=== PATIENT | female | born 1995 | race Caucasian/White ===

== ENCOUNTER 2017-06-11 03:55 | Emergency (ER) | payer SELFPAY ==
[2017-06-11 04:07] VITALS: RESP 16; TEMP 97.5
--- NOTE | 2017-06-11 04:44 | EDPHY ---
H & P Stated Complaint: struck nose on knee while on trampoline, now swollen/bruised Time Seen by Provider: 06/11/17 04:36 HPI/ROS: CHIEF COMPLAINT: Nose injury HISTORY OF PRESENT ILLNESS: The patient is a 22-year-old female who comes to the emergency department an hour after injuring her nose on the trampoline. She states that she hit her nose on her knee. She has swelling but no deformity. She can breathe through her nose easily. She had minimal bleeding initially but it is now stopped. REVIEW OF SYSTEMS: Constitutional: denies: chills, fever, recent illness, recent injury EENTM: denies: blurred vision, double vision, Respiratory: denies: cough, shortness of breath Cardiac: denies: chest pain, irregular heart rate, lightheadedness, palpitations Gastrointestinal/Abdominal: denies: abdominal pain, diarrhea, nausea, vomiting, blood streaked stools Genitourinary: denies: dysuria, frequency, hematuria, pain Musculoskeletal: denies: joint pain, muscle pain Skin: denies: lesions, rash, jaundice, bruising Neurological: denies: headache, numbness, paresthesia, tingling, dizziness, weakness Hematologic/Lymphatic: denies: blood clots, easy bleeding, easy bruising Immunologic/allergic: denies: HIV/AIDS, transplant EXAM: GENERAL: Well-appearing, well-nourished and in no acute distress. HEAD: Atraumatic, normocephalic. EYES: Pupils equal round and reactive to light, extraocular movements intact, sclera anicteric, conjunctiva are normal. ENT: Mild swelling over the bridge of nose, no crepitus, no deformity. Patent airways and normal breathing. TMs normal, nares patent, oropharynx clear without exudates. Moist mucous membranes. NECK: Normal range of motion, supple without lymphadenopathy or JVD. LUNGS: Breath sounds clear to auscultation bilaterally and equal. No wheezes rales or rhonchi. HEART: Regular rate and rhythm without murmurs, rubs or gallops. ABDOMEN: Soft, nontender, normoactive bowel sounds. No guarding, no rebound. No masses appreciated. BACK: No CVA tenderness, no spinal tenderness, step-offs or deformities EXTREMITIES: Normal range of motion, no pitting or edema. No clubbing or cyanosis. NEUROLOGICAL: Cranial nerves II through XII grossly intact. Normal speech, normal gait. 5/5 strength, normal movement in all extremities, normal sensation PSYCH: Normal mood, normal affect. SKIN: Warm, dry, normal turgor, no visible rashes or lesions. Source: Patient Exam Limitations: No limitations - Personal History LMP (Females 10-55): 22-28 Days Ago Current Tetanus/Diphtheria Vaccine: No - Medical/Surgical History Hx Asthma: No Hx Chronic Respiratory Disease: No Hx Diabetes: No Hx Cardiac Disease: No Hx Renal Disease: No Hx Cirrhosis: No Hx Alcoholism: No Hx HIV/AIDS: No Hx Splenectomy or Spleen Trauma: No Other PMH: PMHx: denies. PSHx: tonsillectomy, wisdom tooth extraction - Family History Significant Family History: No pertinent family hx - Social History Smoking Status: Never smoked Alcohol Use: Sober Drug Use: None Constitutional: Initial Vital Signs Temperature (C) 36.4 C 06/11/17 04:03 Heart Rate 90 06/11/17 04:03 Respiratory Rate 16 06/11/17 04:03 Blood Pressure 110/70 06/11/17 04:03 O2 Sat (%) 95 06/11/17 04:03 O2 Delivery Mode Room Air Allergies/Adverse Reactions: Penicillins Allergy (Verified 06/11/17 04:02) Home Medications: Medication Instructions Recorded Daytrana 06/11/17 Loryna 3 mg-0.02 mg Tablet 06/11/17 Medical Decision Making ED Course/Re-evaluation: We discussed treatment for nasal bone fractures. I do not suspect that she has a fracture but will refer her to ENT in case she does. Her nose appears straight but slightly swollen. If there is a fracture does likely nondisplaced. We discussed imaging. Facial x-rays are not typically helpful and she required a CT scan. We agreed that it is not worth the radiation exposure at this time. I encouraged her to continue ice and elevation and anti- inflammatories and follow up with ENT. She understands and agrees with this plan. Differential Diagnosis: Partial list of the Differential diagnosis considered include but were not limited to; nasal bone fracture, epistaxis, contusion and although unlikely based on the history and physical exam, I also considered eye injury, head injury, neck injury. I discussed these differential diagnoses and the plan with the patient as well as the usual and expected course. The patient understands that the diagnosis is provisional and that in medicine we are not always correct and that further workup is often warranted. Usual and customary warnings were given. All of the patient's questions were answered. The patient was instructed to return to the emergency department should the symptoms at all worsen or return, otherwise to followup with the physician as we discussed. Departure - Departure Disposition: Home, Routine, Self-Care Clinical Impression: Nose injury Qualifiers: Encounter type: initial encounter Qualified Code(s): S09.92XA - Unspecified injury of nose, initial encounter Condition: Fair Instructions: Nosebleed (ED) Referrals: [facility] [Other] - As per Instructions Ursula Quintero MD [Medical Doctor] - As per Instructions
[2017-06-11 05:08] VITALS: BP 112/71; PULSE 76; O2SAT 97
== END 2017-06-11 05:08 | disposition home or self-care (01) ==
DX: S09.92XA Unspecified injury of nose, initial encounter (principal); X58.XXXA Exposure to other specified factors, initial encounter; Y99.8 Other external cause status; Y93.44 Activity, trampolining